=== PATIENT | male | born 1965 | race Caucasian/White ===

== ENCOUNTER 2017-12-02 23:13 | Emergency (ER) | payer SELFPAY, BC ==
[2017-12-03] MEDS: LIDOCAINE W/EPINEPHRINE 1% 20ML VIAL SC (01:47)
== END 2017-12-03 02:20 | disposition home or self-care (01) ==
LOC: M ED 23:13
DX: S61.512A Laceration without foreign body of left wrist, initial encounter (principal); W27.2XXA Contact with scissors, initial encounter; Y92.018 Other place in single-family (private) house as the place of occurrence of the external cause; G40.909 Epilepsy, unspecified, not intractable, without status epilepticus
CPT/HCPCS: 12001

== ENCOUNTER 2019-03-03 20:15 | Emergency (ER) | payer SELFPAY ==
[~2019-03-03] VITALS: Ht 180.3 cm; Wt 100.0 kg
[2019-03-03] MEDS ORDERED: NS 1,000 ML IV ONE (20:45)
[2019-03-03 21:01] LABS: BASO # 0.1 10^3/uL (0.0-0.2); BASO % 0.4 % (0.0-1.0); EOS # 0.1 10^3/uL (0.0-0.5); EOS % 0.4 % (0.0-3.0); HEMATOCRIT 47.7 % (42.0-52.0); HEMOGLOBIN 15.9 g/dl (13.5-17.5); LYMPH # 1.5 10^3/uL (1.5-5.0); LYMPH % 13.3 % (24.0-44.0); MEAN CORPUSCULAR HEMOGLOBIN 30.2 pg (27.0-33.0); MEAN CORPUSCULAR HGB CONC 33.3 g/dl (32.0-36.5); MEAN CORPUSCULAR VOLUME 90.5 fl (80.0-96.0); MONO # 0.5 10^3/uL (0.0-0.8); MONO % 4.1 % (0.0-5.0); NEUTROPHILS # 9.4 10^3/uL (1.5-8.5); NEUTROPHILS % 81.4 % (36.0-66.0); PLATELET COUNT, AUTOMATED 129 10^3/uL (150-450); RED BLOOD COUNT 5.27 10^6/uL (4.30-6.10); WHITE BLOOD COUNT 11.5 10^3/uL (4.0-10.0)
[2019-03-03] MEDS: GASTROGRAFIN SOLUTION 30ML PO SCH ×2 (21:15→21:45)
[2019-03-03 21:19] LABS: ALBUMIN 3.8 GM/DL (3.2-5.2); ALT/SGPT 25 U/L (12-78); BILIRUBIN,DIRECT 0.2 MG/DL (0.0-0.2); BILIRUBIN,TOTAL 0.8 MG/DL (0.2-1.0); BLOOD UREA NITROGEN 16 MG/DL (7-18); CALCIUM LEVEL 9.2 MG/DL (8.5-10.1); CARBON DIOXIDE LEVEL 27 MEQ/L (21-32); CHLORIDE LEVEL 109 MEQ/L (98-107); CREATININE FOR GFR 1.19 MG/DL (0.70-1.30); GLOMERULAR FILTRATION RATE > 60.0 (>56); GLUCOSE, FASTING 97 MG/DL (70-100); LIPASE 101 U/L (73-393); POTASSIUM SERUM 3.7 MEQ/L (3.5-5.1); SODIUM LEVEL 143 MEQ/L (136-145); TOTAL PROTEIN 7.4 GM/DL (6.4-8.2)
[2019-03-03] MEDS ORDERED: ISOVUE-370 76% 100ML VIAL (Q9967) As Ordered ONE (22:29)
--- NOTE | 2019-03-03 22:57 | REPVR ---
PROCEDURE INFORMATION: Exam: CT Abdomen And Pelvis With Contrast Exam date and time: 03/03/2019 10:33 PM Age: 53 years old Clinical indication: Abdominal pain; Localized; Left lower quadrant (llq); Additional info: Llq pain TECHNIQUE: Imaging protocol: Computed tomography of the abdomen and pelvis with intravenous contrast. Radiation optimization: All CT scans at this facility use at least one of these dose optimization techniques: automated exposure control; mA and/or kV adjustment per patient size (includes targeted exams where dose is matched to clinical indication); or iterative reconstruction. Contrast material: ISOVUE 370; Contrast volume: 100 ml; Contrast route: IV; COMPARISON: No relevant prior studies available. FINDINGS: Liver: There is a diffuse decrease in hepatic parenchymal density, consistent with fatty infiltration. Gallbladder and bile ducts: Normal. No calcified stones. No ductal dilation. Pancreas: Normal. No ductal dilation. Spleen: Small calcified granuloma spleen. Spleen otherwise unremarkable. Adrenals: Normal. No mass. Kidneys and ureters: Normal. No hydronephrosis. Stomach and bowel: Mild diverticulosis is present in the distal left colon. No diverticulitis. Narrowed a haustral appearance of the left and proximal sigmoid colon associated with minimal pericolonic inflammation, findings which may be related to nondistention however changes related to colitis not excluded. Appendix: No evidence of appendicitis. Intraperitoneal space: Unremarkable. No free air. No significant fluid collection. Vasculature: The aorta demonstrates mild atherosclerotic calcification. Lymph nodes: Unremarkable. No enlarged lymph nodes. Bladder: Unremarkable as visualized. Reproductive: The prostate gland demonstrates moderate hyperplasia. Bones/joints: Mild central spinal stenosis L1-L2, L2-L3, moderate central spinal stenosis L3-L4, severe central spinal stenosis L4-L5. Soft tissues: Bilateral inguinal hernias. No incarceration. IMPRESSION: 1. There is a diffuse decrease in hepatic parenchymal density, consistent with fatty infiltration. 2. Mild diverticulosis is present in the distal left colon. No diverticulitis. 3. Narrowed a haustral appearance of the left and proximal sigmoid colon associated with minimal pericolonic inflammation, findings which may be related to nondistention however changes related to left hemicolitis not excluded. 4. Moderate prostatic hyperplasia. Electronically signed by: Nico Rueda On 03/03/2019 22:56:37 PM
[2019-03-04 00:01] VITALS: BP 118/84
[2019-03-04] MEDS ORDERED: CIPR-249 PO (00:26)
[2019-03-04] MEDS ORDERED: FLAG500T PO (00:27)
[2019-03-04] MEDS ORDERED: metroNIDAZOLE (FLAGYL) 500 MG TAB PO ONE (00:30)
[2019-03-04] MEDS ORDERED: CIPROFLOXACIN 500 MG TAB PO ONE (00:30)
--- NOTE | 2019-03-04 07:41 | ED PDOC ---
Post-Departure Follow-Up dr avila faxed fomral report of ct abd/p for fu Anisha Mullins MD Mar 04, 2019 07:41
== END 2019-03-04 00:35 | disposition home or self-care (01) ==
LOC: M ED 20:15
DX: R10.9 Unspecified abdominal pain (principal); I70.0 Atherosclerosis of aorta; K57.30 Diverticulosis of large intestine without perforation or abscess without bleeding; K76.0 Fatty (change of) liver, not elsewhere classified; M48.061 Spinal stenosis, lumbar region without neurogenic claudication; N40.0 Benign prostatic hyperplasia without lower urinary tract symptoms; F12.99 Cannabis use, unspecified with unspecified cannabis-induced disorder
CPT/HCPCS: 74177; 80048; 80076; 81001; 83690; 85025; 93041; 96360; 96361; 99284; Q9963; Q9967